=== PATIENT | male | born 1950 | race African-American/Black ===

== ENCOUNTER → 2019-12-26 | Outpatient (CLI) | payer OTHER ==
[~2019-12-26] VITALS: Ht 185.4 cm; Wt 59.0 kg
[~2019-12-26] MED LIST: AMLODIPINE BESY10 MG PO; ASA81BEC PO; COREG12.5 MG PO; FLOMAX0.4 MG PO; HYDROXYZINE HCL25 M2 PO; LIPITOR80 MG PO; LISINOPRIL5 MG PO; NEURONTIN300 MG PO; OMEPRAZOLE 20 M20 M1 PO; PROSCAR 5MG TABL5 M1 PO
--- NOTE | 2019-12-28 15:08 | PATH ---
[facility] [place] [address] PATHOLOGY RPT PROCEDURE Name: SHIRLEY VILLA Room #: REG [facility] M.R.#: [id number] Admission: 12/26/19 Date of : 50 Discharge: Report #: [id number] Path Case #: [id number] [facility] Accession Number: [id number] . 01 Material submitted: . PART A: colon - POLYP AT ASCENDING COLON. Modifiers: ascending PART B: hepatic flexure - POLYP AT HEPATIC FLEXURE PART C: splenic flexure - POLYP AT SPLENIC FLEXURE X3 . 01 Clinical history: . Pre-op diagnosis: Screening Post-op diagnosis: Colon polyps, diverticulosis . 02 Diagnosis: A. Colonic mucosa "polyp at ascending colon", biopsy: - Tubular adenoma. - There is no evidence of high-grade dysplasia or malignancy. . B. Colonic mucosa "polyp at hepatic flexure": - Tubular adenoma. - There is no evidence of high-grade dysplasia or malignancy. . C. Colonic mucosa "polyp at splenic flexure": - Tubular adenoma without any definite evidence of high-grade dysplasia or malignancy. - See comment. (SHA:joellen 12/28/2019) QTP 12/28/2019 0909 Local . 02 Comment: This case is also reviewed by Dr. Madelyn Rubalcava. (SHA:joellen 12/28/2019) . 02 Electronically signed: . Jian Ontiveros MD, Pathologist NPI- [id number] . 01 Gross description: . A. The specimen is received in formalin, labeled "Shirley Villa, polyp at ascending colon". Received is a segment of pale bruner soft tissue measuring 0.4 cm in maximum dimensions. The specimen is submitted entirely in cassette A1. . B. The specimen is received in formalin, labeled "Shirley Villa, polyp at hepatic flexure". Received is a segment of light bruner to light brown soft tissue measuring 0.8 x 0.5 x 0.4 cm in greatest dimensions. The surgical margin is inked and the segment is bisected. The specimen is submitted [address] [address] PATHOLOGY RPT PROCEDURE Name: WOODY VILLAER Room #: REG ATIF Kaye#: [id number] Admission: 12/26/19 Date of : 50 Discharge: Report #: [id number] Path Case #: [id number] entirely in cassette B1. . C. The specimen is received in formalin, labeled "Shirley Villa, polyp at splenic flexure". Received are seven segments of pale bruner soft tissue ranging in size from 0.5 to 1.0 cm in maximum dimensions. The surgical margins of the larger three segments are inked and the segments are bisected. The specimen is submitted entirely in cassette C1 and C2. (CAA; 12/27/2019) QAC/QAC 12/27/2019 1431 Local . 02 Pathologist provided ICD-10: D12.2, D12.3 . 02 CPT . 623237, [id number], 195181 Performed at: [address], [place] [id number] MD Gus Fu MD Phone: [phone] Performed at: [address] [id number] MD Bety Pereira MD Phone: [phone]
== END | disposition home or self-care (01) ==
LOC: GI 11-28 12:22
DX: Z12.11 Encounter for screening for malignant neoplasm of colon (principal); D12.2 Benign neoplasm of ascending colon; D12.3 Benign neoplasm of transverse colon; K64.8 Other hemorrhoids; K57.30 Diverticulosis of large intestine without perforation or abscess without bleeding; I10 Essential (primary) hypertension; I25.2 Old myocardial infarction; E78.00 Pure hypercholesterolemia, unspecified; N40.0 Benign prostatic hyperplasia without lower urinary tract symptoms; K21.9 Gastro-esophageal reflux disease without esophagitis; Z98.890 Other specified postprocedural states; Z79.899 Other long term (current) drug therapy
CPT/HCPCS: 62110; 62900